=== PATIENT | female | born 2005 | race Caucasian/White ===

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

== ENCOUNTER → 2025-04-27 | Outpatient (REF) | payer BC ==
[2025-04-27 15:01] LABS: RSV AMPLIFICATION NEGATIVE (NEGATIVE)
== END ==
LOC: M LAB REF 13:11
PROVIDERS: ATTEND Pediatrics
DX: F90.2 Attention-deficit hyperactivity disorder, combined type (principal); J45.40 Moderate persistent asthma, uncomplicated

== ENCOUNTER → 2025-05-31 | Outpatient (REF) | payer BC | LOC: M SFHCWAGY 13:07 | PROVIDERS: ATTEND Nurse Practitioner Family | DX: Z12.4 Encounter for screening for malignant neoplasm of cervix (principal) ==